=== PATIENT | female | born 1980 ===

== ENCOUNTER 2017-02-16 07:06 | Inpatient (IN) | payer MEDICAID ==
[2017-02-16] MEDS ORDERED: IV START KIT ONE (07:48)
[2017-02-16] MEDS ORDERED: LACTATED RINGERS 2,000 ML ONE (07:48)
[2017-02-16] MEDS: LACTATED RINGERS 1,000 ML IV SCH ×3 (08:00→17:21)
[2017-02-16] MEDS ORDERED: CEFAZOLIN SODIUM 2 GRAM DUPLEX 2 G in Premix (D5W) 50 ml 1 EACH IV PRN (08:11)
[2017-02-16 08:36] LABS: HEMOGLOBIN 11.4 gm/l (12.0-16.0); MEAN CELL VOLUME 89.7 fl (81.0-99.0); MEAN CORPUSCULAR HEMOGLOBIN 30.1 pg (27.0-31.0); MEAN CORPUSCULAR HGB CONC 33.5 g/dl (33.0-37.0); RED CELL DISTRIBUTION WIDTH 12.8 % (11.5-14.5)
[2017-02-16 08:55] VITALS: BMI 35.5
[2017-02-16] MEDS ORDERED: SPINAL PROCEDURAL TRAY 1 EACH ONE (09:08)
[2017-02-16] MEDS ORDERED: MORPHINE SULFATE (DURAMORPH) 1 MG/ML 10ML AMP ONE (09:15)
[2017-02-16] MEDS ORDERED: OXYTOCIN 10 UNITS/ML VIAL ONE ×3 (09:17→10:30)
[2017-02-16] MEDS ORDERED: ONDANSETRON 4 MG/2ML 2 ML VIAL ONE (09:17)
[2017-02-16] MEDS ORDERED: CEFAZOLIN SODIUM 2 GRAM DUPLEX 50 ML IV ONE (09:32)
[2017-02-16] MEDS ORDERED: EPHEDRINE SULFATE UD SYR 25 MG 25 MG/5 ML SYRINGE IV ONE (09:49)
[2017-02-16] MEDS ORDERED: FENTANYL 100 MCG/2 ML VIAL ONE ×2 (10:05→10:21)
[2017-02-16] MEDS ORDERED: MIDAZOLAM HCL 1 MG/ML 2ML VIAL ONE (10:22)
[2017-02-16] MEDS ORDERED: KETAMINE HCL UD SYRINGE 100 MG/2 ML IV ONE (10:22)
[2017-02-16] MEDS ORDERED: KETOROLAC TROMETHAMINE 30 MG/ML 1 ML VIAL ONE (10:43)
--- NOTE | 2017-02-16 10:52 | PCMBPN ---
Brief Post Op Note: Date of Procedure: 02/16/17 Start Time: [] Preoperative Diagnosis: 1. [repeat ceserean section, desires permanent sterilization] Postoperative Diagnosis: 1. [Same] Procedure: [repeat low transverse ceserean section, bilateral tubal ligation] Surgeon: Patricia Cadet DO Assist:[Heri Vizcaino MD] Anesthesia: [spinal] Findings: [normal appearing uterus tubes and ovaries] Condition: stable] Complications: [none] IV Fluids: [3000] mLs of LR [] Urine Output: [200] mLs Estimated Blood Loss: [500] mLs Tourniquet Time: [N/A] Specimens: [live male weighing 7.13] Implants: [none] Drains: [N/A] job #[id number]
[2017-02-16] MEDS ORDERED: EPHEDRINE SULFATE 50 MG/ML 1ML VIAL IV PRN (10:59)
[2017-02-16] MEDS ORDERED: NALOXONE HCL 0.4 MG/ML VIAL IV PRN (10:59)
[2017-02-16] MEDS ORDERED: DIPHENHYDRAMINE HCL 50 MG/1 ML VIAL IV PRN (10:59)
[2017-02-16] MEDS ORDERED: HYDROMORPHONE HCL 2 MG/ML SYRINGE IV PRN (10:59)
[2017-02-16] MEDS ORDERED: LANOLIN 50 APPLIC/7G TUBE TP PRN ×2 (11:32)
[2017-02-16] MEDS ORDERED: BENZOCAINE/MENTHOL 60 APPLIC/BOT TP PRN ×2 (11:32)
--- NOTE | 2017-02-16 11:48 | OP ---
Seamus Frausto : 1980 DATE OF PROCEDURE: 02/16/2017 PREOPERATIVE DIAGNOSIS: Repeat section, desires permanent sterilization. POSTOPERATIVE DIAGNOSIS: Repeat section, desires permanent sterilization. PROCEDURE: Repeat low transverse section and bilateral tubal ligation. SURGEON: Patricia Cadet D.O. PEER SPECIALIST: Dr. Heri Yoo. ANESTHESIA: Spinal. FINDINGS: Normal appearing uterus, tubes, and ovaries. CONDITION: Stable. COMPLICATIONS: None. IV FLUIDS: 3 liters of lactated ringers. URINE OUTPUT: 200 mL of clear yellow urine. ESTIMATED BLOOD LOSS: 500 mL. SPECIMENS: Live male weighing 7 pounds 13 ounces. IMPLANTS: None. DRAINS: None. DESCRIPTION OF PROCEDURE: The patient was taken back to the operating room with IV fluids running where spinal anesthesia was easily obtained. She was given 2 gm of Ancef preoperatively for infection prophylaxis. SCD's were placed on her lower extremities and patient was placed in a dorsal supine position and prepped in a normal sterile fashion. A pfannenstiel skin incision was made. The incision was carried down to the fascia with a Bovie. The fascia was nicked in the midline and extended laterally using Gomes scissors. The superior aspect of the fascia was grasped using two Tracy clamps and the underlying rectus muscle was dissected off sharply and bluntly using Gomes scissors. In a similar fashion the inferior aspect of the fascia was grasped and the underlying rectus and pyramidalis muscles were dissected off sharply and bluntly using Gomes scissors. The rectus muscle was in the midline to the level of the symphysis pubis. The peritoneum was identified and entered bluntly. The peritoneal incision was extended using lateral traction. The uterus was encountered and a thinned out lower uterine segment was identified. A bladder flap was created. A knife was used to incise the uterus and the amniotic sac was ruptured to clear fluid. The fetus was found to be in cephalic presentation. The head was lifted up out of the pelvis and fundal pressure was applied to attempt to remove the baby from the pelvis, this was unsuccessful. A Kiwi vacuum was applied to the baby's head and with the assistance of fundal pressure the baby was then delivered without difficulty. The mouth and nose were suctioned with a bulb syringe and the cord was clamped and cut. Cord blood was collected and the placenta was delivered with manual extraction. The uterus was then exteriorized and wiped clear of blood clots and debris. Zero Vicryl was used in a running locked fashion to close the uterine incision. At the completion of the closure there was one area on the left side that required a figure of eight stitch to become hemostatic. After that, the entire uterine incision was hemostatic. Attention was then turned to the patient's left Fallopian tube, it was grasped with a Brock clamp and 0 Chromic was used to ligate an approximately 3 cm section of Fallopian x2. Metzenbaum scissors were used to free the loop of Fallopian tube and it was handed out of the operative field once free from the patient. Cautery was used to ensure hemostasis of the Fallopian tube. When that was complete attention was then turned to the patient's right side where the same procedure was performed. A last look was taken at all operative sites and they were all found to be hemostatic. The uterus was then returned to the abdominal cavity. The gutters were wiped out of blood clots and debris and a last look was taken of all operative sites which were again noted to be hemostatic. The fascia was closed with 0 Vicryl in a running locked fashion. The skin was closed with 4-0 Vicryl on a Pino needle and covered with Steri-Strips. At this point, the procedure was then determined to be complete. The patient was easily aroused from anesthesia and transferred to recovery in stable condition. JOB: [id number]
[2017-02-16] MEDS: HYDROMORPHONE HCL 1 MG/ML SYRINGE IV PRN ×2 (12:38→14:34)
[2017-02-16] MEDS ORDERED: LACTATED RINGERS 500 ML IV ONE (13:01)
[2017-02-16] MEDS ORDERED: LACTATED RINGERS 1,000 ML ONE (13:03)
[2017-02-16] MEDS: PROMETHAZINE HCL 25 MG/ML VIAL IM PRN ×2 (14:10→18:20)
[2017-02-16] MEDS ORDERED: FLU VACC 2016-17 (36MO-64Y)/PF 60 MCG/0.5 ML SYRINGE IM V ONE (16:14)
[2017-02-16] MEDS: KETOROLAC TROMETHAMINE 30 MG/ML 1 ML VIAL IV SCH (19:47)
[2017-02-16] MEDS: DOCUSATE SODIUM 100 MG CAPSULE PO PRN (19:47)
[2017-02-17] MEDS: KETOROLAC TROMETHAMINE 30 MG/ML 1 ML VIAL IV SCH ×2 (01:57→20:24)
[2017-02-17 06:49] LABS: HEMATOCRIT 24.8 % (37.0-47.0); HEMOGLOBIN 8.3 gm/l (12.0-16.0)
--- NOTE | 2017-02-17 09:07 | PDOC44 ---
- Subjective Day: 1 Doing well. No complaints. Reports Flatus, Reports Pain Tolerable, Reports , Reports Tolerating Regular Diet - Objective Temp Pulse Resp BP Pulse Ox 98.8 F 79 16 100/51 100 02/17/17 08:25 02/17/17 08:25 02/17/17 08:25 02/17/17 08:25 02/16/17 15:26 Lab Results 02/17/17 06:25 Hgb 8.3 L D Hct 24.8 L Current Medications Generic Name Dose Route Start Last Admin Trade Name Freq PRN Reason Stop Dose Admin Benzocaine/Menthol 1 applic 02/16/17 11:32 Dermoplast TP PRN PRN Patient Comfort Diphenhydramine HCl 25 - 50 mg 02/16/17 10:59 Benadryl IV 02/17/17 10:59 Q4H PRN Itching Docusate Sodium 100 mg 02/16/17 11:32 02/16/17 19:47 Colace PO 100 mg DAILY PRN Administration Comfort Emollient Ointment 1 applic 02/16/17 11:32 [id number] TP PRN PRN sore nipples Ephedrine Sulfate 5 - 10 mg 02/16/17 10:59 Ephedrine Sulfate IV 02/17/17 10:59 Q5M PRN Hydromorphone HCl 0.5 - 2 mg 02/16/17 10:59 02/16/17 14:34 Dilaudid IV 02/17/17 10:59 0.5 mg Q1H PRN Administration Pain (Breakthrough) Hydromorphone HCl 0.5 - 2 mg 02/16/17 10:59 Dilaudid IV 02/17/17 10:59 Q1H PRN Pain Lactated Ringer's 1,000 mls @ 125 mls/hr 02/16/17 13:15 02/16/17 17:21 Lactated Ringers IV 125 mls/hr .Q8H DOMONIQUE Administration Ibuprofen 800 mg 02/16/17 11:32 Motrin PO Q6H PRN Pain (Mild) Ketorolac Tromethamine 30 mg 02/16/17 16:45 02/17/17 01:57 Toradol IV 02/17/17 10:59 30 mg Q6H DOMONIQUE Administration Naloxone HCl 0.2 - 0.4 mg 02/16/17 10:59 Narcan IV 02/17/17 10:59 Q5M PRN Oxycodone/Acetaminophen 1 - 2 tab 02/16/17 11:32 Percocet 5/325 PO Q4H PRN Pain (Moderate) Promethazine HCl 6.25 - 12.5 mg 02/16/17 10:59 02/16/17 18:20 Phenergan IM 02/17/17 10:59 12.5 mg Q4H PRN Administration Nausea/Vomiting Sodium Chloride 10 ml 02/16/17 11:32 02/17/17 01:57 Normal Saline 10ml Flush IV 10 ml PRN PRN Administration IV Flush Sodium Chloride 10 ml 02/16/17 17:00 Normal Saline 10ml Flush IV Q8HR DOMONIQUE - Physical Exam General: Afebrile Psych/Mental Status: Mood/Affect Appropriate, Judgment/Insight Intact, Bonding Well Neurological: Grossly Intact, Alert, Oriented x 4 HEENT: Atraumatic, PERRLA, EOMI Lungs: Clear to Auscultation Bilaterally, Normal Air Movement Cardiovascular: Regular Rate and Rhythm, Normal S1, Normal S2 Breast: Skin intact, Nipples Intact Fundus: Firm, Midline, Below Umbilicus Abdomen: Normal Bowel Sounds Extremities: Full ROM Skin: Normal Color, Warm, Dry, Intact Wound COMMERCIAL REAL ESTATE ASSISTANT: Dressing in Place, Dressing Clean/Dry/Intact - Problems:Assessment/Plan (1) delivery delivered Status: AcuteAssessment/Plan: Continue postop care. Encourage ambulation Encourage . Disposition: Anticipate DC Home Tomorrow
[2017-02-17] MEDS: IBUPROFEN 800 MG TABLET PO PRN (18:09)
[2017-02-17] MEDS: OXYCODONE/ACETAMINOPHEN 5/325 MG TABLET PO PRN ×2 (18:09→22:57)
[2017-02-17] MEDS: LACTATED RINGERS 1,000 ML IV SCH ×2 (19:11→21:21)
[2017-02-18] MEDS: LACTATED RINGERS 1,000 ML IV SCH (04:08)
[2017-02-18] MEDS: OXYCODONE/ACETAMINOPHEN 5/325 MG TABLET PO PRN ×3 (05:13→15:29)
[2017-02-18] MEDS: DOCUSATE SODIUM 100 MG CAPSULE PO PRN (09:20)
[2017-02-18] MEDS: IBUPROFEN 800 MG TABLET PO PRN (11:05)
--- NOTE | 2017-02-18 12:14 | PDOC44 ---
- Subjective Day: 2 36yo sp third c/section on 02/16 with BTL. EBL 500cc. Pt is out of bed, caring for baby boy without difficulty. Reports Flatus, Reports Pain Tolerable, Reports Lochia Light - Objective Temp Pulse Resp BP Pulse Ox 98.3 F 102 14 113/62 100 02/18/17 07:49 02/18/17 07:49 02/18/17 07:49 02/18/17 07:49 02/16/17 15:26 Current Medications Generic Name Dose Route Start Last Admin Trade Name Freq PRN Reason Stop Dose Admin Benzocaine/Menthol 1 applic 02/16/17 11:32 Dermoplast TP PRN PRN Patient Comfort Docusate Sodium 100 mg 02/16/17 11:32 02/18/17 09:20 Colace PO 100 mg DAILY PRN Administration Comfort Emollient Ointment 1 applic 02/16/17 11:32 02/17/17 22:42 Rtx-V-Firouk TP 1 applic PRN PRN Administration sore nipples Lactated Ringer's 1,000 mls @ 125 mls/hr 02/16/17 13:15 02/18/17 04:08 Lactated Ringers IV Not Given .Q8H DOMONIQUE Ibuprofen 800 mg 02/16/17 11:32 02/17/17 18:09 Motrin PO 800 mg Q6H PRN Administration Pain (Mild) Oxycodone/Acetaminophen 1 - 2 tab 02/16/17 11:32 02/18/17 05:13 Percocet 5/325 PO 2 tab Q4H PRN Administration Pain (Moderate) Sodium Chloride 10 ml 02/16/17 11:32 02/17/17 01:57 Normal Saline 10ml Flush IV 10 ml PRN PRN Administration IV Flush Sodium Chloride 10 ml 02/16/17 17:00 02/18/17 09:20 Normal Saline 10ml Flush IV 10 ml Q8HR DOMONIQUE Administration - Physical Exam General: Afebrile Psych/Mental Status: Mood/Affect Appropriate, Bonding Well Neurological: Alert, Normal Speech Lungs: Clear to Auscultation Bilaterally Cardiovascular: Regular Rate and Rhythm Fundus: Firm, Below Umbilicus Abdomen: Normal Bowel Sounds Lochia: Light Skin: Normal Color, Warm, Dry Wound TOP CLOSER: Dressing Clean/Dry/Intact (Incision clean and dry, healing well) - Problems:Assessment/Plan (1) delivery delivered Status: AcuteAssessment/Plan: Continue postop care. Encourage ambulation Encourage . (2) Sterilization Status: AcuteAssessment/Plan: BTL at time of RCS. Spinal anesthesia and recovering well. Disposition: Stable
--- NOTE | 2017-02-18 13:16 | PDOC39B ---
Hospital Course: ADMIT DATE: 02/16/17 DISCHARGE DATE: 02/18/17 ADMISSION DIAGNOSES: Term , prior c/section PROCEDURES: Repeat c/section (LST) and BTL HISTORY OF PRESENT ILLNESS: 36 year old G3 T2 L2 at 39 weeks 2 days presenting for surgery. HOSPITAL COURSE: The patient had an uncomplicated surgery on 02/16/17. She has done well post-operatively, and is healing well. By day of discharge the patient is ambulating, eating, voiding, and passing flatus without difficulty. Pain is controlled and lochia is appropriate. She is . - Physical Exam Vital Signs: Temp Pulse Resp BP Pulse Ox 98.3 F 102 14 113/62 100 02/18/17 07:49 02/18/17 07:49 02/18/17 07:49 02/18/17 07:49 02/16/17 15:26 General: Afebrile Psych/Mental Status: Bonding Well Lungs: Clear to Auscultation Bilaterally Cardiovascular: Regular Rate and Rhythm Abdomen: Normal Bowel Sounds Lochia: Light Skin: Normal Color, Warm Wound: Well Approximated - Discharge Diagnosis (1) delivery delivered Status: AcuteAssessment/Plan: Continue postop care. Encourage ambulation Encourage . (2) Sterilization Status: AcuteAssessment/Plan: BTL at time of RCS. Spinal anesthesia and recovering well. - Discharge Plan Condition: Good Disposition: Home Prescriptions: Docusate Sodium [COLACE 100 MG CAPSULE (SHF)] 100 mg PO DAILY PRN #60 PRN Reason: Comfort Ibuprofen [IBUPROFEN 800 MG TABLET (SHF)] 800 mg PO Q6H PRN #100 PRN Reason: Pain (Mild) Oxycodone HCl/Acetaminophen [PERCOCET 5/325 MG TABLET (SHF)] 1 - 2 tab PO Q4H PRN #60 PRN Reason: Pain (Moderate) Follow-Up: Patricia Cadet DO [Staff Physician] - In 7-10 days
[2017-02-18 14:29] VITALS: BP 130/60
[2017-02-18] MEDS ORDERED: FLU VACC 2016-17 (36MO-64Y)/PF 60 MCG/0.5 ML SYRINGE IM V ONE (14:45)
--- NOTE | 2017-02-20 10:47 | SURGPATH ---
[facility] [address] [place] [id number] Patient Name: ALBARO ORTIZ MR#: [id number] : 1980 Gender: F Specimen #: [id number] Collected: 02/16/2017 Received: 02/17/2017 Reported: 02/20/2017 Submitting Phys: DORA GRIFFIN Copy To Phys: [facility] Clinical History / Pre-Operative Diagnosis: NOT PROVIDED Specimen Source / Surgical Procedure Performed: Bilateral fallopian tubes Interpretation: LEFT AND RIGHT FALLOPIAN TUBE, TUBAL LIGATION: - COMPLETE CROSS-SECTION OF BILATERAL FALLOPIAN TUBES Electronically Signed Out Lucas Hardy M.D. Gross Description: The specimen is received in formalin labeled with the patient's name and "bilateral tubes". The specimen consists of two 1.5 cm non-fimbriated fallopian tubes. The right is marked with black ink for identification. [employer] submitted in one cassette. HOMA King Microscopic Description: Microscopic performed. 1: 46989(2) Z30.2
== END 2017-02-18 16:24 | disposition home or self-care (01) | DRG 766 ==
LOC: FBC 07:06
PROVIDERS: ADMIT Obstetrics & Gynecology; ATTEND Obstetrics & Gynecology
PROC: 10D00Z1 Extraction of Products of Conception, Low, Open Approach (ICD-10-PCS; principal; 2017-02-16)
PROC: 0UL70ZZ Occlusion of Bilateral Fallopian Tubes, Open Approach (ICD-10-PCS; 2017-02-16)
DX: O34.211 Maternal care for low transverse scar from previous cesarean delivery (principal); Z37.0 Single live birth; Z30.2 Encounter for sterilization; O09.523 Supervision of elderly multigravida, third trimester; Z3A.39 39 weeks gestation of pregnancy